=== PATIENT | female | born 1945 | race Caucasian/White ===

== ENCOUNTER 2016-04-15 12:27 | Inpatient (IN) | payer OTHER, BC ==
[~2016-04-15] VITALS: Ht 160 cm; Wt 45.0 kg
[~2016-04-15 12:27] MED LIST: ASPIR 8181 M1 PO; ASPIR-LOW81 MG PO; ATORVASTATIN CA40 MG PO; BENZONATATE100 MG PO; CATAPRES0.1 MG PO; CATAPRES0.2 MG PO; CEFTIN500 MG PO; CLONIDINE; CLONIDINE HCL0.2 MG PO; CLOPIDOGREL75 MG PO; CORICIDIN HBP1 EAC5 PO; COUMADIN1 MG PO; Catapres PO; D3; Ecotrin PO; FEOSOL325 MG PO; FUROSEMIDE40 MG PO; HYDRALAZINE HCL25 MG PO; HYDROCHLOROTHIA25 MG PO; Hydrodiuril,Oretic,E PO; INSULIN PUMP SCCONT; IRON325 MG PO; LEVOFLOXACIN750 MG PO; LEVOTHYROXINE50 MCG PO; LIPITOR40 MG PO; LISINOPRIL40 MG PO; LOPRESSOR25 MG PO; LOPRESSOR50 MG PO; LOW DOSE ASPIRI81 M1 PO; Levothroid,Synthroid PO; MEGA RED; METOPROLOL SUCC50 MG PO; METOPROLOL TART50 MG PO; MUCINEX600 MG PO; NIFEDIPINE ER30 MG PO; NORVASC5 MG PO; NOVOLOG; OXYCODONE HCL5 M1 PO; OXYCODONE HCL5 MG PO; PLAVIX75 MG PO; PROTONIX40 MG PO; ROBITUSSIN AC,T10 ML PO; SYNTHROID50 MCG PO; TYLENOL REGULA325 MG PO; VITAMIN D-32000 UNI2 PO; VITAMIN D2000 INTUN PO; Vitamin D PO; ZESTRIL40 MG PO; ZETIA10 MG PO; ZITHROMAX500 MG PO; ZOFRAN4 MG PO; Zestril,Prinivil PO
[2016-04-15 13:37] LABS: HEMATOCRIT 33.3 % (36.0-46.0); MCH 26.7 PG (29.0-34.0); MCHC 31.2 G/DL (30.0-36.0); MCV 85.6 FL (83-99); MEAN PLAT.VOLUME 11.9 uM^3 (9.5-12.4); PLATELET COUNT 196 K/uL (156-360); RBC DIS.WIDTH-CV 16.4 % (11.8-14.6); RBC DIS.WIDTH-SD 50.3 % (39-53); RED BLOOD COUNT 3.89 M/uL (3.80-5.20); WHITE BLOOD COUNT 7.4 K/uL (4.1-10.2)
[2016-04-15 13:48] LABS: CHLORIDE 101 mEq/L (99-109); POTASSIUM 3.7 mEq/L (3.7-5.4); SODIUM 140 mEq/L (136-147)
[2016-04-15 13:49] LABS: GLUCOSE 136 mg/dL (70-99)
[2016-04-15 13:51] LABS: ANION GAP 12 MEQ/L (2-14)
[2016-04-15 13:53] LABS: GFR ESTIMATE (CALCULATED) 34 mL/min/
[2016-04-15 13:54] LABS: UREA NITROGEN (BUN) 24 mg/dL (9-23)
[2016-04-15 15:03] LABS: TOTAL BILIRUBIN 1.1 mg/dL (0.0-1.0)
[2016-04-15 15:04] LABS: ALKALINE PHOSPHATASE 144 IU/L (3-129)
[2016-04-15 15:06] LABS: DIRECT BILIRUBIN 0.5 mg/dL (0.0-0.3)
[2016-04-15] MEDS ORDERED: TORSEMIDE10 MG PO (15:20)
[2016-04-15] MEDS ORDERED: HYDRALAZINE HCL50 MG PO (15:20)
[2016-04-15] MEDS ORDERED: CLONIDINE HCL0.1 MG PO ×2 (16:28)
[2016-04-15] MEDS ORDERED: VITAMIN D-32000 UNI2 PO (16:30)
[2016-04-15 20:15] VITALS: BP 174/86
[2016-04-15 23:10] VITALS: BP 131/64
[2016-04-16 02:55] VITALS: BP 169/76
[2016-04-16 06:44] LABS: ADD MIUA? NO; BILIRUBIN NEGATIVE; BLOOD NEGATIVE; COLOR YELLOW ((YELLOW)); GLUCOSE (STRIP) NEGATIVE; KETONES NEGATIVE; LEUKOCYTES NEGATIVE; NITRITE NEGATIVE; PROTEIN (STRIP) NEGATIVE; SPECIFIC GRAVITY 1.007 (1.000-1.030)
[2016-04-16 06:47] VITALS: BP 172/69
[2016-04-16 07:49] LABS: HEMATOCRIT 32.9 % (36.0-46.0); MCH 26.3 PG (29.0-34.0); MCHC 30.7 G/DL (30.0-36.0); MCV 85.7 FL (83-99); MEAN PLAT.VOLUME 11.8 uM^3 (9.5-12.4); PLATELET COUNT 183 K/uL (156-360); RBC DIS.WIDTH-CV 16.8 % (11.8-14.6); RBC DIS.WIDTH-SD 52.5 % (39-53); RED BLOOD COUNT 3.84 M/uL (3.80-5.20); WHITE BLOOD COUNT 7.7 K/uL (4.1-10.2)
[2016-04-16 08:15] LABS: ANION GAP 12 MEQ/L (2-14); CHLORIDE 98 MEQ/L (99-109); GFR ESTIMATE (CALCULATED) 39 mL/min/; GLUCOSE 114 mg/dL (70-99); IRON 73 MCG/DL (35-150); POTASSIUM 3.9 MEQ/L (3.7-5.4); SAMPLE HEMOLYSIS CHECK 0; SAMPLE ICTERIC CHECK 0; SAMPLE LIPEMIA CHECK 0; SODIUM 140 MEQ/L (136-147); UREA NITROGEN (BUN) 20 mg/dL (9-23)
[2016-04-16 08:32] LABS: FERRITIN 33 NG/ML (10-291)
[2016-04-16 08:52] LABS: TROP-I INTERPRETATION NEGATIVE; TROPONIN-I 0.02 ng/mL (0.0-0.30)
[2016-04-16 12:15] VITALS: BP 156/69
[2016-04-16 15:40] VITALS: BP 153/58
[2016-04-16 19:39] VITALS: BP 152/69
[2016-04-16 23:17] VITALS: BP 138/63
[2016-04-17 03:30] VITALS: BP 155/70
[2016-04-17 05:40] LABS: ANION GAP 9 MEQ/L (2-14); CHLORIDE 96 MEQ/L (99-109); GFR ESTIMATE (CALCULATED) 31 mL/min/; GLUCOSE 157 mg/dL (70-99); POTASSIUM 3.4 MEQ/L (3.7-5.4); SAMPLE HEMOLYSIS CHECK 0; SAMPLE ICTERIC CHECK 0; SAMPLE LIPEMIA CHECK 0; SODIUM 138 MEQ/L (136-147); UREA NITROGEN (BUN) 23 mg/dL (9-23)
[2016-04-17] MEDS ORDERED: BUMETANIDE1 MG PO (08:00)
[2016-04-17] MEDS ORDERED: SPIRONOLACTONE25 MG PO (08:00)
[2016-04-17] MEDS ORDERED: AMLODIPINE BESY10 MG PO (08:00)
[2016-04-17 08:20] VITALS: BP 183/77
== END 2016-04-17 16:05 | disposition home or self-care (01) | DRG 291 ==
LOC: EME 12:27 → EDOF 15:51 → 2EAST 15:51
PROVIDERS: Hospitalist; Internal Medicine; Physician Assistant
DX: I13.0 Hypertensive heart and chronic kidney disease with heart failure and stage 1 through stage 4 chronic kidney disease, or unspecified chronic kidney disease (principal); I50.33 Acute on chronic diastolic (congestive) heart failure; E11.22 Type 2 diabetes mellitus with diabetic chronic kidney disease; I42.9 Cardiomyopathy, unspecified; I35.0 Nonrheumatic aortic (valve) stenosis; N18.3 Chronic kidney disease, stage 3 (moderate); I25.10 Atherosclerotic heart disease of native coronary artery without angina pectoris; Z95.1 Presence of aortocoronary bypass graft; Z95.5 Presence of coronary angioplasty implant and graft; I27.2 Other secondary pulmonary hypertension; E78.5 Hyperlipidemia, unspecified; Z95.2 Presence of prosthetic heart valve; Z79.4 Long term (current) use of insulin; E03.9 Hypothyroidism, unspecified; D64.9 Anemia, unspecified; R00.1 Bradycardia, unspecified; I25.2 Old myocardial infarction
CPT/HCPCS: 71020; 80048; 80076; 81003; 82728; 82948; 83540; 83880; 84466; 84484; 85027; 87040; 93005; 99281; 99285; J1644; J1815; J1940; J1956; J7120